=== PATIENT | female | born 1960 | race Two or more races ===

== ENCOUNTER 2022-02-13 12:02 | Emergency (ER) | payer BC, OTHER ==
[~2022-02-13] VITALS: Ht 154.9 cm; Wt 45.8 kg
[2022-02-13 13:16] VITALS: BP 116/70
[2022-02-13] MEDS ORDERED: IBUP600T27 PO (13:48)
[2022-02-13] MEDS ORDERED: IBUPROFEN 600 MG TAB PO ONE (14:00)
== END 2022-02-13 14:00 | disposition home or self-care (01) ==
LOC: ER 12:02
DX: S09.90XA Unspecified injury of head, initial encounter (principal); Z79.1 Long term (current) use of non-steroidal anti-inflammatories (NSAID); W20.8XXA Other cause of strike by thrown, projected or falling object, initial encounter; Y93.89 Activity, other specified; Y92.89 Other specified places as the place of occurrence of the external cause; Y99.8 Other external cause status
CPT/HCPCS: 70450